=== PATIENT | male | born 1960 | race Caucasian/White ===

== ENCOUNTER 2017-10-17 12:31 | Emergency (ER) | payer SELFPAY ==
[2017-10-17 14:14] LABS: ABS Basophils 0.1 10^3/ul (0-0.2); ABS Eosinophils 0 10^3/ul (0-0.6); ABS Lymphocytes 1.5 10^3/ul (1.0-4.8); ABS Monocytes 0.4 10^3/ul (0-0.8); ABS Neutrophils 4.7 10^3/ul (1.5-7.7); ABS Nucleated RBC 0 10^3/ul; Eosinophil % 0.4 % (0-6); Hematocrit 47 % (42-52); Hemoglobin 16.1 g/dl (14.0-18.0); Mean Corpuscular HGB Conc 35 g/dl (31-36); Mean Corpuscular Hemoglobin 32 pg (27-31); Mean Corpuscular Volume 92 fL (80-94); Mean Platelet Volume 8 um3 (7.4-10.4); Nucleated Red Blood Cells % 0.1; Platelet Count 178 10^3/ul (150-450); Red Blood Count 5.09 10^6/ul (4.0-5.4); Red Cell Distribution Width 14 % (10.5-15); White Blood Count 6.7 10^3/ul (3.5-10.8)
[2017-10-17 14:20] LABS: INR 0.98 (0.77-1.02)
[2017-10-17 14:30] LABS: EGFR Non-African American 67.8 (>60)
--- NOTE | 2017-10-17 14:56 | RAD ---
HISTORY: Right arm weakness COMPARISONS: May 31, 2016 TECHNIQUE: Multiple contiguous axial CT scans were obtained of the head without intravenous contrast. FINDINGS: HEMORRHAGE/INFARCT: There is no hemorrhage or acute infarct. MASSES/SHIFT: There is no mass or shift. EXTRA-AXIAL SPACES: There are no extra-axial fluid collections. SULCI AND VENTRICLES: The sulci and ventricles are normal in size and position for the patient's stated age. CEREBRUM: There is mild, patchy hypoattenuation of the periventricular and subcortical white matter. BRAINSTEM: There are no focal parenchymal abnormalities. CEREBELLUM: There are no focal parenchymal abnormalities. VESSELS: The vessels are grossly normal. PARANASAL SINUSES: The paranasal sinuses are clear. ORBITS: The orbits are unremarkable. BONES AND SOFT TISSUE: No bone or soft tissue abnormalities are noted. OTHER: None IMPRESSION: NO ACUTE INTRACRANIAL PATHOLOGY. MILD CHRONIC SMALL VESSEL ISCHEMIC CHANGES
[2017-10-17 15:21] LABS: Urine Appearance Clear; Urine Blood 1+ (Negative); Urine Color Yellow; Urine Ketones Negative (Negative); Urine Protein Negative (Negative); Urine Specific Gravity 1.005 (1.010-1.030); Urine Urobilinogen Negative (Negative)
[2017-10-17] MEDS ORDERED: Metoclopramide IV* 5 MG/ML 2 ML VIAL IV ONE (17:07)
[2017-10-17] MEDS ORDERED: Ketorolac INJ* 30 MG/ML 1 ML VIAL IV ONE (17:07)
--- NOTE | 2017-10-17 18:15 | RAD ---
HISTORY: Syncopal episodes and general weakness COMPARISONS: Most recent MRI of the brain is dated June 01, 2016 TECHNIQUE: The following sequences were obtained of the head: Sagittal T1-weighted images, axial T2-weighted images, axial FLAIR images, axial susceptibility weighted images, axial T1-weighted images. Additionally, axial diffusion-weighted images were obtained with calculated apparent diffusion coefficients.. FINDINGS: HEMORRHAGE/INFARCT: There is no hemorrhage or acute infarct. MASSES/SHIFT: There is no mass or shift. EXTRA-AXIAL SPACES/MENINGES: There are no extra-axial fluid collections. SULCI AND VENTRICLES: The sulci and ventricles are normal in size and position for the patient's stated age. CEREBRUM: Similar to the previous MRI of the brain there are scattered subcentimeter T2 bright intensities in the periventricular and subcortical white matter tracts. The erickson-white matter differentiation is otherwise adequately maintained. BRAINSTEM: There are no focal parenchymal abnormalities. CEREBELLUM: There are no focal parenchymal abnormalities. The cerebellar tonsils are normal in size and position. SELLA: The sella is normal. PINEAL: The pineal region is clear. CP ANGLE/TEMPORAL BONES: The labyrinthine structures are grossly normal. VESSELS: Normal flow-voids are noted within the visualized vertebral vasculature. DIFFUSION ABNORMALITIES: There are no diffusion abnormalities. PARANASAL SINUSES/MASTOIDS: There is mucosal thickening of the bilateral maxillary sinuses similar to the prior MRI. ORBITS: The orbits are unremarkable. BONES AND SOFT TISSUE: No bone or soft tissue abnormalities are noted. IMPRESSION: 1. AGAIN SEEN ARE SUBCORTICAL AND PERIVENTRICULAR T2 BRIGHT FOCI SIMILAR IN APPEARANCE TO THE JUNE 01, 2016 MRI OF THE BRAIN. THE DIFFERENTIAL FOR THIS INCLUDES CHRONIC MICROVASCULAR DISEASE OR DEMYELINATING DISEASE ACCORDING TO THE CLINICAL PRESENTATION. 2. THERE IS NO MR EVIDENCE OF AN ACUTE TERRITORIAL OR FOCAL INFARCTION.
[2017-10-17 18:25] VITALS: BP 146/104
--- NOTE | 2017-10-18 11:32 | ED ---
Raisa Rosen Thomas, scribed for Stiven Khan MD on 10/17/17 at 1331 . Neurological HPI - HPI Summary HPI Summary: Patient is a 56 year old male who woke up this morning on the floor. In the ED, he complains of shaking to his right arm and that his body does not feel right . The patient has a history of syncope of unclear etiology, which first began in 2002. The patient has previously been admitted to the hospital. The patient denies leg pain or shaking to the left arm. - History of Current Complaint Chief Complaint: EDSyncope Stated Complaint: SYNCOPE,POSSIBLE STROKE Time Seen by Provider: 10/17/17 12:57 Hx Obtained From: Patient Onset/Duration: Started hours ago - onest this morning, Still Present Timing: Constant Current Severity: Moderate Pain Intensity: 2 Pain Scale Used: 0-10 Numeric Alleviating: Other - BP cuff Associated Signs and Symptoms: Negative: Fever - Additional Pertinent History Primary Care Physician: MICHELLE - Allergy/Home Medications Allergies/Adverse Reactions: Allergies Allergy/AdvReac Type Severity Reaction Status Date / Time green vegetables Allergy Nausea And Uncoded 06/01/16 01:20 Vomiting Home Medications: Home Medications NK [No Home Medications Reported] 10/17/17 [History Confirmed 10/17/17] PMH/Surg Hx/FS Hx/Imm Hx Previously Healthy: Yes Cardiovascular History: Denies: Hx Pacemaker/ICD Musculoskeletal History: Reports: Hx Orthopedic Injury - left knee Sensory History: Denies: Hx Hearing Aid Neurological History: Reports: Hx Migraine, Other Neuro Impairments/Disorders - recurrent syncopal episodes Psychiatric History: Denies: Hx Panic Disorder - Surgical History Surgery Procedure, Year, and Place: appendectomy. left knee surgery x4 - Immunization History Date of Tetanus Vaccine: pt states unsure Date of Influenza Vaccine: none Infectious Disease History: No Infectious Disease History: Denies: Traveled Outside the [place] in Last 30 Days - Family History Known Family History: Negative: Other - recurrent syncope - Social History Alcohol Use: Occasionally Hx Substance Use: Yes Substance Use Type: Reports: Marijuana Hx Tobacco Use: Yes Smoking Status (MU): Light Every Day Tobacco Smoker Type: Cigarettes Review of Systems Positive: Other - "doesn't feel right". Negative: Fever Neurological: Other - Shaking to right hand Positive: Syncope All Other Systems Reviewed And Are Negative: Yes Physical Exam - Summary Physical Exam Summary: Appearance: The patient is well-nourished in no acute distress and in no acute pain. Skin: The skin is warm and dry and skin color reflects adequate perfusion. HEENT: The head is normocephalic and atraumatic. The pupils are equal and reactive. The conjunctivae are clear and without drainage. Nares are patent and without drainage. Mouth reveals moist mucous membranes and the throat is without erythema and exudate. The external ears are intact. The ear canals are patent and without drainage. The tympanic membranes are intact. Neck: the neck is supple with full range of motion and non-tender. There are no carotid bruits. There is no neck vein distension. Respiratory: Chest is non-tender. Lungs are clear to auscultation and breath sounds are symmetrical and equal. Cardiovascular: Heart is regular rate and rhythm. There is no murmur or rub auscultated. There is no peripheral edema and pulses are symmetrical and equal. Abdomen: The abdomen is soft and non-tender. There are normal bowel sounds heard in all four quadrants and there is no organomegaly palpated. Musculoskeletal: There is no back tenderness noted. Extremities are non-tender with full range of motion. There is good capillary refill. There is no peripheral edema or calf tenderness elicited. Neurological: Patient is alert and oriented to person, place and time. The patient has positive pronator drift. He has a weak right arm. Cranial nerves are grossly intact. Deep tendon reflexes are symmetrical and equal in all four extremities. Psychiatric: The patient has an appropriate affect and does not exhibit any anxiety or depression. Triage Information Reviewed: Yes Vital Signs On Initial Exam: Initial Vitals Temp Pulse Resp BP Pulse Ox 98.9 F 108 17 172/118 98 10/17/17 12:33 10/17/17 12:33 10/17/17 12:33 10/17/17 12:33 10/17/17 12:33 Vital Signs Reviewed: Yes - Shanika Coma Scale Coma Scale Total: 15 Diagnostics - Vital Signs Vital Signs Temp Pulse Resp BP Pulse Ox 10/17/17 13:00 82 19 95 10/17/17 12:54 85 10/17/17 12:50 93 19 173/98 98 10/17/17 12:33 98.9 F 108 17 172/118 98 - Laboratory Lab Results: Lab Results 10/17/17 10/17/17 10/17/17 Range/Units 13:10 13:10 13:10 WBC 6.7 (3.5-10.8) 10^3/ul RBC 5.09 (4.0-5.4) 10^6/ul Hgb 16.1 (14.0-18.0) g/dl Hct 47 (42-52) % MCV 92 (80-94) fL MCH 32 H (27-31) pg MCHC 35 (31-36) g/dl RDW 14 (10.5-15) % Plt Count 178 (150-450) 10^3/ul MPV 8 (7.4-10.4) um3 Neut % (Auto) 69.9 (38-83) % Lymph % (Auto) 23.0 L (25-47) % Camp % (Auto) 5.9 (1-9) % Eos % (Auto) 0.4 (0-6) % Baso % (Auto) 0.8 (0-2) % Absolute Neuts (auto) 4.7 (1.5-7.7) 10^3/ul Absolute Lymphs (auto) 1.5 (1.0-4.8) 10^3/ul Absolute Monos (auto) 0.4 (0-0.8) 10^3/ul Absolute Eos (auto) 0 (0-0.6) 10^3/ul Absolute Basos (auto) 0.1 (0-0.2) 10^3/ul Absolute Nucleated RBC 0 10^3/ul Nucleated RBC % 0.1 INR (Anticoag Therapy) 0.98 (0.77-1.02) Sodium 136 (133-145) mmol/L Potassium 3.8 (3.5-5.0) mmol/L Chloride 104 (101-111) mmol/L Carbon Dioxide 26 (22-32) mmol/L Anion Gap 6 (2-11) mmol/L BUN 11 (6-24) mg/dL Creatinine 1.12 (0.67-1.17) mg/dL Est GFR ( Amer) 87.2 (>60) Est GFR (Non-Af Amer) 67.8 (>60) BUN/Creatinine Ratio 9.8 (8-20) Glucose 92 (70-100) mg/dL Lactic Acid (0.5-2.0) mmol/L Calcium 9.5 (8.6-10.3) mg/dL Total Bilirubin 0.50 (0.2-1.0) mg/dL AST 16 (13-39) U/L ALT 13 (7-52) U/L Alkaline Phosphatase 40 (34-104) U/L Troponin I 0.00 (<0.04) ng/mL Total Protein 7.1 (6.4-8.9) g/dL Albumin 4.2 (3.2-5.2) g/dL Globulin 2.9 (2-4) g/dL Albumin/Globulin Ratio 1.4 (1-3) TSH 1.83 (0.34-5.60) mcIU/mL Urine Color Urine Appearance Urine pH (5-9) Ur Specific Pingree (1.010-1.030) Urine Protein (Negative) Urine Ketones (Negative) Urine Blood (Negative) Urine Nitrate (Negative) Urine Bilirubin (Negative) Urine Urobilinogen (Negative) Ur Leukocyte Esterase (Negative) Urine WBC (Auto) (Absent) Urine RBC (Auto) (Absent) Urine Bacteria (Absent) Urine Glucose (Negative) Serum Alcohol < 10 (<10) mg/dL 10/17/17 10/17/17 Range/Units 13:10 14:42 WBC (3.5-10.8) 10^3/ul RBC (4.0-5.4) 10^6/ul Hgb (14.0-18.0) g/dl Hct (42-52) % MCV (80-94) fL MCH (27-31) pg MCHC (31-36) g/dl RDW (10.5-15) % Plt Count (150-450) 10^3/ul MPV (7.4-10.4) um3 Neut % (Auto) (38-83) % Lymph % (Auto) (25-47) % Camp % (Auto) (1-9) % Eos % (Auto) (0-6) % Baso % (Auto) (0-2) % Absolute Neuts (auto) (1.5-7.7) 10^3/ul Absolute Lymphs (auto) (1.0-4.8) 10^3/ul Absolute Monos (auto) (0-0.8) 10^3/ul Absolute Eos (auto) (0-0.6) 10^3/ul Absolute Basos (auto) (0-0.2) 10^3/ul Absolute Nucleated RBC 10^3/ul Nucleated RBC % INR (Anticoag Therapy) (0.77-1.02) Sodium (133-145) mmol/L Potassium (3.5-5.0) mmol/L Chloride (101-111) mmol/L Carbon Dioxide (22-32) mmol/L Anion Gap (2-11) mmol/L BUN (6-24) mg/dL Creatinine (0.67-1.17) mg/dL Est GFR ( Amer) (>60) Est GFR (Non-Af Amer) (>60) BUN/Creatinine Ratio (8-20) Glucose (70-100) mg/dL Lactic Acid 1.3 (0.5-2.0) mmol/L Calcium (8.6-10.3) mg/dL Total Bilirubin (0.2-1.0) mg/dL AST (13-39) U/L ALT (7-52) U/L Alkaline Phosphatase (34-104) U/L Troponin I (<0.04) ng/mL Total Protein (6.4-8.9) g/dL Albumin (3.2-5.2) g/dL Globulin (2-4) g/dL Albumin/Globulin Ratio (1-3) TSH (0.34-5.60) mcIU/mL Urine Color Yellow Urine Appearance Clear Urine pH 6.0 (5-9) Ur Specific Pingree 1.005 L (1.010-1.030) Urine Protein Negative (Negative) Urine Ketones Negative (Negative) Urine Blood 1+ H (Negative) Urine Nitrate Negative (Negative) Urine Bilirubin Negative (Negative) Urine Urobilinogen Negative (Negative) Ur Leukocyte Esterase Trace H (Negative) Urine WBC (Auto) Trace(0-5/hpf) (Absent) Urine RBC (Auto) Trace(0-2/hpf) (Absent) Urine Bacteria Absent (Absent) Urine Glucose Negative (Negative) Serum Alcohol (<10) mg/dL Result Diagrams: 10/17/17 13:10 10/17/17 13:10 Lab Statement: Any lab studies that have been ordered have been reviewed, and results considered in the medical decision making process. - CT CT Brain CT Interpretation: No Acute Changes - NO ACUTE INTRACRANIAL PATHOLOGY. MILD CHRONIC SMALL VESSEL ISCHEMIC CHANGES. Dr. khan has reviewed this report. CT Interpretation Completed By: Radiologist - EKG 13:49 Cardiac Rate: NL EKG Rhythm: Sinus Rhythm - at 70 BPM - Additional Comments Diagnostic Additional Comments: MRI Brain. Interpreted by radiologist. Impression: 1. AGAIN SEEN ARE SUBCORTICAL AND PERIVENTRICULAR T2 BRIGHT FOCI SIMILAR IN APPEARANCE TO THE JUNE 01, 2016 MRI OF THE BRAIN. THE DIFFERENTIAL FOR THIS INCLUDES CHRONIC MICROVASCULAR DISEASE OR DEMYELINATING DISEASE ACCORDING TO THE CLINICAL PRESENTATION. 2. THERE IS NO MR EVIDENCE OF AN ACUTE TERRITORIAL OR FOCAL INFARCTION. Dr. Khan has reviewed this report. Course/Dx - Course Course Of Treatment: Mr. Camarillo reports that he found himself on the floor this AM. This has happened to him before and his sister reports that he has been syncopal before and that that is what must have happened this time. Today he is C/O his right arm started to hurt and shake when he took a shower but that went away when they put the blood pressure cuff on it. He's not sure it is working right now. There was no neuro deficit to my exam and it was not tender but he continued to hold it in what looked like an awkward position.He underwent a thorough W/U here which was negative. He C/O that when this happens 'they never find out what was wrong'. He C/o about Dr. Walker because 'he told me I'm crazy'. It is unclear to me what is causing his symptoms however a functional problem is most likely. - Diagnoses Provider Diagnoses: Syncope, Cervical radiculopathy Discharge - Discharge Plan Condition: Stable Disposition: HOME Patient Education Materials: Syncope (ED), Cervical Radiculopathy (ED) Referrals: [facility] [Outside] - 3 Days Guido Pelaez MD [Medical Doctor] - 3 Days Additional Instructions: Follow up with your primary care provider in three days. Follow up with Dr. Pelaez, neurology, in three days. Return to the emergency department for any new or worsening symptoms. The documentation as recorded by the Raisa levin Thomas accurately reflects the service I personally performed and the decisions made by me, Stiven Khan MD.
== END 2017-10-17 19:03 | disposition home or self-care (01) ==
LOC: ED 12:31
DX: R55 Syncope and collapse (principal); M54.12 Radiculopathy, cervical region; F17.210 Nicotine dependence, cigarettes, uncomplicated
CPT/HCPCS: 36415; 70450; 70551; 80053; 80320; 81003; 81015; 83605; 84443; 84484; 85025; 85610; 87086; 93005; 96374; 96375; 99282; G0480; J1885; J2765